=== PATIENT | male | born 1955 | race Hispanic/Latino ===

== ENCOUNTER 2018-10-13 09:59 | Emergency (ER) | payer BC, MEDICAID, SELFPAY ==
[2018-10-13 10:25] LABS: BASOPHILS % (AUTO) 0.8 % (0.0-5.0); EOSINOPHILS % (AUTO) 18.3 % (0.0-8.0); HEMATOCRIT 26.9 % (42-54); LYMPHOCYTES % (AUTO) 12.7 % (21.0-51.0); MEAN CORPUSCULAR HEMOGLOBIN 32.4 pg (27.0-33.0); MEAN CORPUSCULAR HGB CONC 33.7 g/dL (32.0-36.0); MEAN CORPUSCULAR VOLUME 96.2 fL (79-99); MONOCYTES % (AUTO) 9.1 % (3.0-13.0); NEUTROPHILS % (AUTO) 59.1 % (40.0-77.0); PLATELET COUNT (AUTO) 249 K/uL (130-400); RED CELL DISTRIBUTION WIDTH 14.1 % (11.0-15.5)
[2018-10-13 10:40] LABS: BILIRUBIN,TOTAL 0.3 mg/dL (0.2-1.0); CREATININE 5.9 mg/dL (0.5-1.5); POTASSIUM 5.5 mmol/L (3.5-5.1)
== END 2018-10-13 12:06 | disposition home or self-care (01) ==
LOC: EDH 09:59
DX: E87.5 Hyperkalemia (principal); I12.9 Hypertensive chronic kidney disease with stage 1 through stage 4 chronic kidney disease, or unspecified chronic kidney disease; N18.9 Chronic kidney disease, unspecified; E78.5 Hyperlipidemia, unspecified; K21.9 Gastro-esophageal reflux disease without esophagitis; Z85.01 Personal history of malignant neoplasm of esophagus; Z87.891 Personal history of nicotine dependence; Z79.899 Other long term (current) drug therapy
CPT/HCPCS: 36415; 80053; 84484; 85025; 93005

== ENCOUNTER 2018-10-29 01:42 | Emergency (ER) | payer MEDICAID | END 2018-10-29 03:16 | disposition home or self-care (01) | LOC: EDH 01:42 | DX: K59.00 Constipation, unspecified (principal); K21.9 Gastro-esophageal reflux disease without esophagitis; E78.5 Hyperlipidemia, unspecified; I10 Essential (primary) hypertension; Z85.01 Personal history of malignant neoplasm of esophagus | CPT/HCPCS: 99281 ==

== ENCOUNTER 2019-12-21 20:35 | Emergency (ER) | payer MEDICAID ==
[~2019-12-21 20:35] MED LIST: AMLO10TA7 PO; ATOR20TA PO; CARV6.2579 PO; CHOL100040 PO; FOLI1TAB85 PO; LORA1TAB3 PO; NITR0.4T SL; VIT59LIQ SL
[2019-12-21 21:51] LABS: BASOPHILS % (AUTO) 0.3 % (0.0-5.0); EOSINOPHILS % (AUTO) 6.6 % (0.0-8.0); HEMATOCRIT 34.1 % (42-54); LYMPHOCYTES % (AUTO) 6.1 % (21.0-51.0); MEAN CORPUSCULAR HEMOGLOBIN 32.5 pg (27.0-33.0); MEAN CORPUSCULAR HGB CONC 32.6 g/dL (32.0-36.0); MEAN CORPUSCULAR VOLUME 99.7 fL (79-99); MONOCYTES % (AUTO) 12.1 % (3.0-13.0); NEUTROPHILS % (AUTO) 74.7 % (40.0-77.0); PLATELET COUNT (AUTO) 221 K/uL (130-400); RED BLOOD CELL COUNT(AUTO) 3.42 MIL/uL (4.50-6.20); RED CELL DISTRIBUTION WIDTH 13.8 % (11.0-15.5); WHITE BLOOD COUNT (AUTO) 6.2 K/uL (4.8-10.8)
[2019-12-21] MEDS ORDERED: SODIUM CHLORIDE 0.9% 500ML 500 ML IV ONE (22:04)
[2019-12-21] MEDS ORDERED: ACETAMINOPHEN 325 MG TAB ONE (22:04)
[2019-12-21 22:06] LABS: CREATININE 6.1 mg/dL (0.5-1.5)
[2019-12-21 22:10] LABS: ALBUMIN 3.6 g/dL (3.5-5.0); BILIRUBIN,TOTAL 0.9 mg/dL (0.2-1.0); TOTAL PROTEIN, SERUM 8.6 g/dL (6.0-8.3)
[2019-12-21 22:20] LABS: APPEARANCE,URINE Clear (CLEAR); BILIRUBIN,URINE Negative (NEGATIVE); COLOR,URINE Yellow (YELLOW); GLUCOSE, URINE (UA) Negative (NEGATIVE); KETONES,URINE Trace mg/dL (NEGATIVE); LEUKOCYTE ESTERASE ,URINE Negative (NEGATIVE); NITRATE,URINE Negative (NEGATIVE); OCCULT BLOOD,URINE Negative (NEGATIVE); PH,URINE >=9.0 (5.0-8.0); PROTEIN,URINE 300 mg/dL (NEGATIVE)
[2019-12-21 22:27] LABS: RBC,URINE 0-1 /HPF (0-1)
[2019-12-21 22:28] LABS: BACTERIA,URINE Rare /HPF (None Seen); SQUAMOUS EPITHELIAL CELL,UR Rare /HPF (0-2); WBC,URINE 0-1 /HPF (0-1)
== END 2019-12-22 00:42 | disposition home or self-care (01) ==
LOC: EDH 20:35
DX: K52.9 Noninfective gastroenteritis and colitis, unspecified (principal); E86.0 Dehydration; K21.9 Gastro-esophageal reflux disease without esophagitis; I10 Essential (primary) hypertension; E78.5 Hyperlipidemia, unspecified; E87.5 Hyperkalemia
CPT/HCPCS: 36415; 71045; 80053; 81001; 83605; 83690; 84484; 85025; 87040 ×2; 93005; 96360; 99285; J7040

== ENCOUNTER 2020-05-28 21:59 | Inpatient (IN) | payer MEDICARE ==
[~2020-05-28] VITALS: Ht 167.6 cm; Wt 69.3 kg
[2020-05-28 22:38] LABS: APPEARANCE,URINE Clear (CLEAR); BILIRUBIN,URINE Negative (NEGATIVE); COLOR,URINE Yellow (YELLOW); GLUCOSE, URINE (UA) TRACE mg/dL (NEGATIVE); KETONES,URINE Negative (NEGATIVE); LEUKOCYTE ESTERASE ,URINE Negative (NEGATIVE); NITRATE,URINE Negative (NEGATIVE); OCCULT BLOOD,URINE Negative (NEGATIVE); PH,URINE 8.5 (5.0-8.0); PROTEIN,URINE 300 mg/dL (NEGATIVE); UROBILINOGEN,URINE 0.2 mg/dL (0.2-1.0)
[2020-05-28 22:51] LABS: BASOPHILS % (AUTO) 0.4 % (0.0-5.0); EOSINOPHILS % (AUTO) 4.2 % (0.0-8.0); HEMATOCRIT 31.8 % (42-54); LYMPHOCYTES % (AUTO) 6.7 % (21.0-51.0); MEAN CORPUSCULAR HEMOGLOBIN 32.6 pg (27.0-33.0); MEAN CORPUSCULAR HGB CONC 32.1 g/dL (32.0-36.0); MEAN CORPUSCULAR VOLUME 101.6 fL (79-99); NEUTROPHILS % (AUTO) 77.4 % (40.0-77.0); PLATELET COUNT (AUTO) 180 K/uL (130-400); RED BLOOD CELL COUNT(AUTO) 3.13 MIL/uL (4.50-6.20); RED CELL DISTRIBUTION WIDTH 14.2 % (11.0-15.5); WHITE BLOOD COUNT (AUTO) 7.2 K/uL (4.8-10.8)
[2020-05-28 23:02] LABS: INR 0.99 (0.85-1.15); PARTIAL THROMBOPLASTIN TIME 35.1 SEC (26.3-35.5); PROTHROMBIN TIME 10.7 SEC (9.6-11.6)
[2020-05-28 23:20] LABS: ALBUMIN 3.2 g/dL (3.5-5.0); BILIRUBIN,TOTAL 0.4 mg/dL (0.2-1.0); POTASSIUM 4.9 mmol/L (3.5-5.1); TOTAL PROTEIN, SERUM 7.5 g/dL (6.0-8.3)
[2020-05-28 23:22] LABS: CREATININE 11.5 mg/dL (0.5-1.5)
[2020-05-28 23:25] LABS: B-TYPE NATRIURETIC PEPTIDE 1490 pg/mL (0-100)
[2020-05-28] MEDS ORDERED: DILTIAZEM HCL 125 MG/25 ML VIAL IV ONE (23:25)
[2020-05-28] MEDS ORDERED: SODIUM CHLORIDE 0.9% 100 ML IV ONE (23:29)
[2020-05-28] MEDS ORDERED: FENTANYL CITRATE PF 50 MCG/1 ML 2ML VIAL ONE (23:53)
[2020-05-29] MEDS ORDERED: NITROGLYCERIN 0.4 MG SL TAB SL PRN (02:45)
[2020-05-29] MEDS ORDERED: LIDOCAINE HCL 2% VISCOUS 30 ML, MAG HYDROX/AL HYDROX/SIMETH 30 ML, BELLADONNA-PHENOBARB... PO PRN ×3 (02:45)
[2020-05-29] MEDS ORDERED: MAG HYDROX/AL HYDROX/SIMETH ES 30 ML SUSP UDCUP PO PRN (02:45)
[2020-05-29] MEDS ORDERED: DiphenhydrAMINE HCL 50 MG/ML VIAL IV PRN (02:45)
[2020-05-29] MEDS ORDERED: ACETAMINOPHEN 325 MG TAB PO PRN (02:45)
[2020-05-29] MEDS ORDERED: ONDANSETRON HCL 4 MG/2 ML VIAL IV PRN (02:45)
[2020-05-29] MEDS ORDERED: LACTULOSE 20 GM/30 ML UDCUP PO PRN (02:45)
[2020-05-29] MEDS ORDERED: MAG HYDROX/AL HYDROX/SIMETH 30 ML, LIDOCAINE HCL 2% VISCOUS 30 ML, DIPHENHYDRAMINE HCL ... PO PRN ×3 (02:45)
[2020-05-29] MEDS ORDERED: DIPHENHYDRAMINE HCL 25 MG CAPSULE PO PRN (02:45)
[2020-05-29] MEDS ORDERED: DILTIAZEM HCL 5 MG/ML 5 ML VIAL IVP PRN (04:15)
[2020-05-29] MEDS ORDERED: DILTIAZEM HCL 125 MG/25 ML 125 MG in SODIUM CHLORIDE 0.9% 100 ML IV PRN (04:15)
[2020-05-29] MEDS: GUAIFENESIN-DM 200/20 MG 10 ML PO PRN ×2 (06:17→20:36)
[2020-05-29] MEDS: ACETAMINOPHEN 325 MG TAB PO PRN ×2 (06:18→20:37)
[2020-05-29 08:00] VITALS: BP 182/80
[2020-05-29] MEDS: FAMOTIDINE/PF 20 MG/2 ML VIAL IV SCH ×2 (08:19→20:36)
[2020-05-29] MEDS: VITAMIN B COMPLEX 1 CAPSULE PO SCH (08:19)
[2020-05-29] MEDS: FOLIC ACID/VITAMIN B COMP W-C 1 CAP TAB PO SCH (08:19)
[2020-05-29 08:57] LABS: BASOPHILS % (AUTO) 0.3 % (0.0-5.0); EOSINOPHILS % (AUTO) 0.3 % (0.0-8.0); LYMPHOCYTES % (AUTO) 6.5 % (21.0-51.0); MEAN CORPUSCULAR HEMOGLOBIN 32.9 pg (27.0-33.0); MEAN CORPUSCULAR HGB CONC 32.6 g/dL (32.0-36.0); MEAN CORPUSCULAR VOLUME 100.9 fL (79-99); MONOCYTES % (AUTO) 12.1 % (3.0-13.0); NEUTROPHILS % (AUTO) 80.4 % (40.0-77.0); PLATELET COUNT (AUTO) 191 K/uL (130-400); RED BLOOD CELL COUNT(AUTO) 3.37 MIL/uL (4.50-6.20); RED CELL DISTRIBUTION WIDTH 14.2 % (11.0-15.5); WHITE BLOOD COUNT (AUTO) 7.7 K/uL (4.8-10.8)
[2020-05-29 09:12] LABS: BILIRUBIN,TOTAL 0.4 mg/dL (0.2-1.0); MAGNESIUM 2.2 mg/dL (1.80-2.40); PHOSPHORUS 4.5 mg/dL (2.5-4.9); POTASSIUM 5.2 mmol/L (3.5-5.1); TOTAL PROTEIN, SERUM 7.5 g/dL (6.0-8.3)
[2020-05-29] MEDS: **HM** VIT D3 1000 UNITS PO SCH (09:20)
[2020-05-29] MEDS: HEPARIN SODIUM 5000UNIT/ML 1ML VIAL SQ SCH ×3 (09:23→20:36)
[2020-05-29 09:24] LABS: CREATININE 11.8 mg/dL (0.5-1.5)
[2020-05-29 09:54] LABS: TROPONIN I 0.1 ng/mL (0.00-0.06)
--- NOTE | 2020-05-29 11:31 | NUR ---
DCP CM unable to meet with pt. Spoke to pt's son Juan San III on facesheet, discussed dc plans. Per son pt is independent prior to admission, lives at home w/spouse and son at home. Goes to [facility] T[facility] 4th shift. [facility]. Denies any other equipments/services. Feels safe to go back home, still drives, son able to assist with transportation and needs as necessary. DC plan to home once stable. CM to continue to follow up. Addendum: 05/29/20 at 1134 by DRU COHEN LVN CM Amended: Links added.
[2020-05-29 12:00] VITALS: BP 158/82
[2020-05-29 16:00] VITALS: BP 161/87
[2020-05-29 16:28] LABS: TROPONIN I 0.08 ng/mL (0.00-0.06)
[2020-05-29] MEDS ORDERED: SODIUM CHLORIDE 0.9% 1000ML 1,000 ML IV PRN (17:00)
[2020-05-29 19:30] VITALS: BP 164/75
[2020-05-29] MEDS: ZOLPIDEM TARTRATE 5 MG TAB PO PRN (20:37)
[2020-05-29 22:00] LABS: CREATINE KINASE, TOTAL 114 U/L (21-232); MYOGLOBIN 214 ng/mL (10-92); TROPONIN I < 0.04 ng/mL (0.00-0.06)
[2020-05-30 00:18] VITALS: BP 155/87
--- NOTE | 2020-05-30 02:59 | NUR ---
received report from xochitl leon nurse, assumed care, head to toe assessment done, 24 cc done, pt negative pcr of covid informed shira charged nurse, will pass to day team, safety maintained.
[2020-05-30 04:00] VITALS: BP 146/62
[2020-05-30] MEDS: GUAIFENESIN-DM 200/20 MG 10 ML PO PRN ×2 (05:11→20:28)
[2020-05-30] MEDS: ACETAMINOPHEN 325 MG TAB PO PRN ×2 (05:11→20:28)
[2020-05-30 05:28] LABS: BASOPHILS % (AUTO) 0.4 % (0.0-5.0); EOSINOPHILS % (AUTO) 2.4 % (0.0-8.0); HEMATOCRIT 31.5 % (42-54); LYMPHOCYTES % (AUTO) 6.7 % (21.0-51.0); MEAN CORPUSCULAR HGB CONC 33.3 g/dL (32.0-36.0); MEAN CORPUSCULAR VOLUME 99.1 fL (79-99); MONOCYTES % (AUTO) 9.9 % (3.0-13.0); NEUTROPHILS % (AUTO) 80.5 % (40.0-77.0); PLATELET COUNT (AUTO) 216 K/uL (130-400); RED BLOOD CELL COUNT(AUTO) 3.18 MIL/uL (4.50-6.20); RED CELL DISTRIBUTION WIDTH 14.2 % (11.0-15.5); WHITE BLOOD COUNT (AUTO) 7.1 K/uL (4.8-10.8)
[2020-05-30 06:01] LABS: ALBUMIN 2.9 g/dL (3.5-5.0); BILIRUBIN,TOTAL 0.5 mg/dL (0.2-1.0); MAGNESIUM 2.1 mg/dL (1.80-2.40); PHOSPHORUS 6.3 mg/dL (2.5-4.9); POTASSIUM 4.4 mmol/L (3.5-5.1); TOTAL PROTEIN, SERUM 7.5 g/dL (6.0-8.3)
[2020-05-30 06:17] LABS: CREATININE 9.8 mg/dL (0.5-1.5)
[2020-05-30] MEDS ORDERED: CEFTRIAXONE SODIUM 1 GM IVP SCH (07:45)
[2020-05-30 08:30] VITALS: BP 155/82
[2020-05-30] MEDS: FAMOTIDINE/PF 20 MG/2 ML VIAL IV SCH ×2 (08:35→20:25)
[2020-05-30] MEDS: VITAMIN B COMPLEX 1 CAPSULE PO SCH (08:35)
[2020-05-30] MEDS: FOLIC ACID/VITAMIN B COMP W-C 1 CAP TAB PO SCH (08:35)
[2020-05-30] MEDS: HEPARIN SODIUM 5000UNIT/ML 1ML VIAL SQ SCH ×3 (08:36→20:27)
[2020-05-30] MEDS: DOXYCYCLINE HYCLATE 100 MG TABLET PO SCH ×2 (08:49→20:29)
[2020-05-30] MEDS: **HM** VIT D3 1000 UNITS PO SCH (09:00)
[2020-05-30] MEDS ORDERED: VANCOMYCIN PROTOCOL PER PHARMACY IV SCH (10:15)
[2020-05-30] MEDS ORDERED: ASPI-1005 PO (10:51)
[2020-05-30] MEDS ORDERED: CALC667C10 PO (10:51)
[2020-05-30] MEDS ORDERED: TAMS-1 PO (10:52)
[2020-05-30] MEDS ORDERED: VANCOMYCIN 1GM+NS 250ML 250 ML IV SCH (11:00)
[2020-05-30] MEDS: CEFEPIME HCL 1 GM VIAL IVP SCH (11:30)
[2020-05-30 12:10] VITALS: BP 171/89
[2020-05-30] MEDS: LORAZEPAM 1 MG TABLET PO PRN (14:01)
[2020-05-30] MEDS ORDERED: AMIODARONE HCL 900 MG in DEXTROSE 5%-WATER 500 ML IV SCH (15:30)
[2020-05-30] MEDS ORDERED: AMIODARONE HCL 150 MG in DEXTROSE 5%-WATER 100 ML IV SCH (15:30)
[2020-05-30 16:30] VITALS: BP 158/72
[2020-05-30] MEDS: CARVEDILOL 6.25 MG TABLET PO SCH ×2 (16:58→20:29)
[2020-05-30 20:24] VITALS: BP 145/75
[2020-05-30] MEDS: ZOLPIDEM TARTRATE 5 MG TAB PO PRN (20:28)
[2020-05-31] VITALS (7 sets, daily range): BP systolic 128–169; BP diastolic 74–88
[2020-05-31] MEDS: ACETAMINOPHEN 325 MG TAB PO PRN (05:26)
[2020-05-31] MEDS: GUAIFENESIN-DM 200/20 MG 10 ML PO PRN (05:26)
--- NOTE | 2020-05-31 06:03 | NUR ---
received report from xochitl leon nurse, assumed care, dialysis, shift assessment done, 24 cc done, timed medication given see emar, given 2 covalescent plasma, pt tolerated well, no signs of distress noted, safety maintained.
[2020-05-31 06:43] LABS: BASOPHILS % (AUTO) 0.4 % (0.0-5.0); EOSINOPHILS % (AUTO) 1.8 % (0.0-8.0); HEMATOCRIT 29.6 % (42-54); LYMPHOCYTES % (AUTO) 7.1 % (21.0-51.0); MEAN CORPUSCULAR HGB CONC 33.4 g/dL (32.0-36.0); MEAN CORPUSCULAR VOLUME 98.7 fL (79-99); MONOCYTES % (AUTO) 7.9 % (3.0-13.0); NEUTROPHILS % (AUTO) 82.2 % (40.0-77.0); PLATELET COUNT (AUTO) 242 K/uL (130-400); RED CELL DISTRIBUTION WIDTH 14.4 % (11.0-15.5); WHITE BLOOD COUNT (AUTO) 6.8 K/uL (4.8-10.8)
[2020-05-31 07:04] LABS: ALBUMIN 2.6 g/dL (3.5-5.0); BILIRUBIN,TOTAL 0.5 mg/dL (0.2-1.0); CREATININE 7.4 mg/dL (0.5-1.5); PHOSPHORUS 4.5 mg/dL (2.5-4.9); POTASSIUM 3.6 mmol/L (3.5-5.1); TOTAL PROTEIN, SERUM 7.1 g/dL (6.0-8.3)
[2020-05-31] MEDS: DOXYCYCLINE HYCLATE 100 MG TABLET PO SCH ×2 (08:45→21:26)
[2020-05-31] MEDS: FOLIC ACID/VITAMIN B COMP W-C 1 CAP TAB PO SCH (08:45)
[2020-05-31] MEDS: CARVEDILOL 6.25 MG TABLET PO SCH ×2 (08:48→21:25)
[2020-05-31] MEDS: VITAMIN B COMPLEX 1 CAPSULE PO SCH (08:49)
[2020-05-31] MEDS: FAMOTIDINE/PF 20 MG/2 ML VIAL IV SCH ×2 (08:49→21:25)
[2020-05-31] MEDS ORDERED: VANCOMYCIN 1GM+NS 250ML 250 ML IV SCH (09:00)
[2020-05-31] MEDS: CEFEPIME HCL 1 GM VIAL IVP SCH (09:29)
[2020-05-31] MEDS: APIXABAN 2.5 MG TABLET PO SCH ×2 (09:31→21:27)
[2020-05-31] MEDS: AMIODARONE HCL 200 MG TABLET PO SCH (09:31)
[2020-05-31] MEDS: **HM** VIT D3 1000 UNITS PO SCH (09:32)
[2020-05-31] MEDS: HEPARIN SODIUM 5000UNIT/ML 1ML VIAL SQ SCH ×3 (10:00→21:28)
[2020-05-31 10:13] LABS: HEPATITIS A ANTIBODY IGM Negative (Negative); HEPATITIS B CORE IGM Negative (Negative); HEPATITIS Bs ANTIGEN SCREEN P Negative (Negative)
[2020-06-01 03:51] LABS: BASOPHILS % (AUTO) 0.3 % (0.0-5.0); EOSINOPHILS % (AUTO) 7.1 % (0.0-8.0); HEMATOCRIT 30.8 % (42-54); MEAN CORPUSCULAR HEMOGLOBIN 32.4 pg (27.0-33.0); MEAN CORPUSCULAR HGB CONC 32.8 g/dL (32.0-36.0); MEAN CORPUSCULAR VOLUME 98.7 fL (79-99); MONOCYTES % (AUTO) 8.5 % (3.0-13.0); NEUTROPHILS % (AUTO) 70.7 % (40.0-77.0); PLATELET COUNT (AUTO) 264 K/uL (130-400); RED BLOOD CELL COUNT(AUTO) 3.12 MIL/uL (4.50-6.20); RED CELL DISTRIBUTION WIDTH 14.6 % (11.0-15.5); WHITE BLOOD COUNT (AUTO) 7.1 K/uL (4.8-10.8)
[2020-06-01 04:10] LABS: POTASSIUM 3.7 mmol/L (3.5-5.1)
[2020-06-01 04:25] LABS: CREATININE 9.3 mg/dL (0.5-1.5)
[2020-06-01 04:34] VITALS: BP 132/75
[2020-06-01 07:45] VITALS: BP 166/84
[2020-06-01] MEDS: **HM** VIT D3 1000 UNITS PO SCH (09:00)
[2020-06-01] MEDS: DOXYCYCLINE HYCLATE 100 MG TABLET PO SCH ×2 (10:05→22:13)
[2020-06-01] MEDS: APIXABAN 2.5 MG TABLET PO SCH ×2 (10:05→22:14)
[2020-06-01] MEDS: AMIODARONE HCL 200 MG TABLET PO SCH (10:06)
[2020-06-01] MEDS: CEFEPIME HCL 1 GM VIAL IVP SCH (10:06)
[2020-06-01] MEDS: VITAMIN B COMPLEX 1 CAPSULE PO SCH (10:06)
[2020-06-01] MEDS: FOLIC ACID/VITAMIN B COMP W-C 1 CAP TAB PO SCH (10:06)
[2020-06-01] MEDS: FAMOTIDINE/PF 20 MG/2 ML VIAL IV SCH ×2 (10:06→22:14)
[2020-06-01] MEDS: CARVEDILOL 6.25 MG TABLET PO SCH ×2 (10:06→22:13)
--- NOTE | 2020-06-01 10:30 | NUR ---
RECEIVED CALL FROM STARCHMAKER PATIENT HAD 6 BEATS OF VTACH LASTING APPROX [address]. SIMMONS MADE AWARE, NO NEW ORDERS
[2020-06-01 11:00] VITALS: BP 123/65
[2020-06-01 16:00] VITALS: BP 128/70
[2020-06-01 20:10] VITALS: BP 159/83
[2020-06-01] MEDS: LORAZEPAM 1 MG TABLET PO PRN (22:43)
[2020-06-01 23:30] VITALS: BP 145/63
[2020-06-02 04:00] VITALS: BP 160/73
[2020-06-02 06:19] LABS: BASOPHILS % (AUTO) 0.7 % (0.0-5.0); HEMATOCRIT 29.3 % (42-54); LYMPHOCYTES % (AUTO) 18.1 % (21.0-51.0); MEAN CORPUSCULAR HEMOGLOBIN 32.5 pg (27.0-33.0); MEAN CORPUSCULAR HGB CONC 32.4 g/dL (32.0-36.0); MEAN CORPUSCULAR VOLUME 100.3 fL (79-99); MONOCYTES % (AUTO) 11.8 % (3.0-13.0); NEUTROPHILS % (AUTO) 58.8 % (40.0-77.0); PLATELET COUNT (AUTO) 284 K/uL (130-400); RED BLOOD CELL COUNT(AUTO) 2.92 MIL/uL (4.50-6.20); RED CELL DISTRIBUTION WIDTH 14.5 % (11.0-15.5); WHITE BLOOD COUNT (AUTO) 5.4 K/uL (4.8-10.8)
[2020-06-02 06:41] LABS: CREATININE 7.3 mg/dL (0.5-1.5); MAGNESIUM 2.1 mg/dL (1.80-2.40); POTASSIUM 3.8 mmol/L (3.5-5.1)
[2020-06-02 08:00] VITALS: BP 155/79
--- NOTE | 2020-06-02 08:42 | NUR ---
PATIENT REFUSES TO HAVE DR HOFFMAN HIS DOCTOR, IS REQUESTING A DIFFERENT DOCTOR.
[2020-06-02] MEDS: FOLIC ACID/VITAMIN B COMP W-C 1 CAP TAB PO SCH (09:00)
[2020-06-02] MEDS: VITAMIN B COMPLEX 1 CAPSULE PO SCH (09:00)
[2020-06-02] MEDS: **HM** VIT D3 1000 UNITS PO SCH (09:00)
[2020-06-02 11:00] VITALS: BP 152/80
[2020-06-02] MEDS: CEFEPIME HCL 1 GM VIAL IVP SCH (11:09)
[2020-06-02] MEDS: CARVEDILOL 6.25 MG TABLET PO SCH (11:12)
[2020-06-02] MEDS: DOXYCYCLINE HYCLATE 100 MG TABLET PO SCH (11:13)
[2020-06-02] MEDS: AMIODARONE HCL 200 MG TABLET PO SCH (11:13)
[2020-06-02] MEDS: FAMOTIDINE/PF 20 MG/2 ML VIAL IV SCH (11:13)
[2020-06-02] MEDS: APIXABAN 2.5 MG TABLET PO SCH (11:13)
--- NOTE | 2020-06-02 15:40 | NUR ---
#22 rh iv removed upon discharge. Catheter intact. Covered with gauze, bandage. Addendum: 06/02/20 at 1542 by HERBIE INGRAM RN RN Amended: Links added.
[2020-06-02 16:08] VITALS: BP 164/79
== END 2020-06-02 16:16 | disposition home or self-care (01) | DRG 193 ==
LOC: EDH 21:59 → EDHIP 05-29 02:37 → 4AH 05-29 04:04 → 4DH 05-31 14:49
PROVIDERS: ADMIT Internal Medicine; ATTEND Internal Medicine
PROC: 5A1D70Z Performance of Urinary Filtration, Intermittent, Less than 6 Hours Per Day (ICD-10-PCS; principal; 2020-05-29)
PROC: 5A1D70Z Performance of Urinary Filtration, Intermittent, Less than 6 Hours Per Day (ICD-10-PCS; 2020-05-30)
PROC: 5A1D70Z Performance of Urinary Filtration, Intermittent, Less than 6 Hours Per Day (ICD-10-PCS; 2020-06-01)
DX: J18.1 Lobar pneumonia, unspecified organism (principal); N18.6 End stage renal disease; J96.01 Acute respiratory failure with hypoxia; D61.818 Other pancytopenia; I13.2 Hypertensive heart and chronic kidney disease with heart failure and with stage 5 chronic kidney disease, or end stage renal disease; I47.1 Supraventricular tachycardia; E87.1 Hypo-osmolality and hyponatremia; E87.5 Hyperkalemia; I50.9 Heart failure, unspecified; I48.0 Paroxysmal atrial fibrillation; F41.9 Anxiety disorder, unspecified; Z20.828 Contact with and (suspected) exposure to other viral communicable diseases; E78.5 Hyperlipidemia, unspecified; E87.70 Fluid overload, unspecified; E11.22 Type 2 diabetes mellitus with diabetic chronic kidney disease; N40.0 Benign prostatic hyperplasia without lower urinary tract symptoms; Y95 Nosocomial condition; N26.1 Atrophy of kidney (terminal); K74.60 Unspecified cirrhosis of liver; R53.81 Other malaise; D64.9 Anemia, unspecified; I25.10 Atherosclerotic heart disease of native coronary artery without angina pectoris; Z96.643 Presence of artificial hip joint, bilateral; Z99.2 Dependence on renal dialysis; Z79.82 Long term (current) use of aspirin; Z79.01 Long term (current) use of anticoagulants; Z79.899 Other long term (current) drug therapy; Z85.01 Personal history of malignant neoplasm of esophagus; Z91.15 Patient's noncompliance with renal dialysis; Z90.49 Acquired absence of other specified parts of digestive tract
CPT/HCPCS: 36415; 71045; 71250; 74176; 80048; 80053; 80074; 81003; 82550; 82728; 83605; 83615; 83690; 83735; 83874; 83880; 84100; 84145; 84484; 85025; 85378; 85610; 85730; 86140; 87426; 90935; 93005; 93306; 93356; 99291; G0378; J0282; J0692; J0696; J1644; J3010; J3370; J3490; J7060; U0003

== ENCOUNTER → 2020-07-19 | Outpatient (CLI) | payer MEDICARE ==
[~2020-07-19] MED LIST changes: +AMLO-258 PO; -AMLO10TA7 PO; +ASPI-1005 PO; +CALC667C10 PO; +TAMS-1 PO
== END | disposition home or self-care (01) ==
LOC: SHCH 15:30
PROVIDERS: ATTEND Internal Medicine Cardiovascular Disease
DX: I65.23 Occlusion and stenosis of bilateral carotid arteries (principal); I25.10 Atherosclerotic heart disease of native coronary artery without angina pectoris
CPT/HCPCS: 93880

== ENCOUNTER → 2020-07-21 | Outpatient (CLI) | payer MEDICARE ==
[2020-07-21] MEDS: REGADENOSON 0.4 MG/5 ML PF SYG IVP SCH (11:33)
== END | disposition home or self-care (01) ==
LOC: SHCH 07:55
PROVIDERS: ATTEND Internal Medicine Cardiovascular Disease
DX: I25.10 Atherosclerotic heart disease of native coronary artery without angina pectoris (principal)
CPT/HCPCS: 78452; 93017; 96374; A9500 ×2; J2785

== ENCOUNTER → 2021-07-27 | Outpatient (CLI) | payer OTHER, MEDICARE | END | disposition home or self-care (01) | LOC: RAH 14:05 | PROVIDERS: ATTEND Thoracic Surgery (Cardiothoracic Vascular Surgery) | DX: J44.9 Chronic obstructive pulmonary disease, unspecified (principal); J98.11 Atelectasis; K80.20 Calculus of gallbladder without cholecystitis without obstruction; Z90.49 Acquired absence of other specified parts of digestive tract | CPT/HCPCS: 71250 ==

== ENCOUNTER → 2023-01-24 | Outpatient (CLI) | payer OTHER, MEDICARE | END | disposition home or self-care (01) | LOC: SHCH 09:31 | PROVIDERS: ATTEND Internal Medicine Cardiovascular Disease | DX: I08.0 Rheumatic disorders of both mitral and aortic valves (principal); I11.9 Hypertensive heart disease without heart failure; I65.23 Occlusion and stenosis of bilateral carotid arteries; E78.5 Hyperlipidemia, unspecified; Z95.1 Presence of aortocoronary bypass graft | CPT/HCPCS: 93306; 93880 ==

== ENCOUNTER → 2023-01-31 | Outpatient (CLI) | payer OTHER, MEDICARE ==
[~2023-01-31] MED LIST changes: +REGADENOSON 0.4 MG/5 ML PF SYG IVP ONE
== END | disposition home or self-care (01) ==
LOC: CANPRECLI → SHCH 07:43
PROVIDERS: ATTEND Internal Medicine Cardiovascular Disease
DX: R06.09 Other forms of dyspnea (principal); I25.10 Atherosclerotic heart disease of native coronary artery without angina pectoris; R06.02 Shortness of breath; I13.11 Hypertensive heart and chronic kidney disease without heart failure, with stage 5 chronic kidney disease, or end stage renal disease; N18.6 End stage renal disease; Z99.2 Dependence on renal dialysis; Z95.1 Presence of aortocoronary bypass graft; Z79.899 Other long term (current) drug therapy; Z79.01 Long term (current) use of anticoagulants
CPT/HCPCS: 78452; 96374; 93017; J2785; A9500 ×2

== ENCOUNTER 2024-02-09 06:18 | Day surgery (SDC) | payer OTHER, MEDICARE ==
[2024-02-06 10:19] VITALS: BP 152/72; PULSE 53; RESP 18
[2024-02-06 10:25] LABS: BASOPHILS # (AUTO) 0.05 K/uL (0.00-0.20); BASOPHILS % (AUTO) 0.8 % (0.0-5.0); EOSINOPHILS # (AUTO) 0.65 K/uL (0.00-0.70); EOSINOPHILS % (AUTO) 10.2 % (0.0-8.0); HEMATOCRIT 32.9 % (42-54); IMMATURE GRANULOCYTE ABSOLUTE 0.01 K/uL (0-1); LYMPHOCYTES # (AUTO) 0.6 K/uL (1.0-4.8); LYMPHOCYTES % (AUTO) 9.9 % (21.0-51.0); MEAN CORPUSCULAR HEMOGLOBIN 33.4 pg (27.0-33.0); MEAN CORPUSCULAR HGB CONC 32.8 g/dL (32.0-36.0); MEAN CORPUSCULAR VOLUME 101.9 fL (79-99); MONOCYTES # (AUTO) 0.7 K/uL (0.1-1.0); NEUTROPHILS # (AUTO) 4.3 K/uL (1.8-7.7); NEUTROPHILS % (AUTO) 67.9 % (40.0-77.0); PLATELET COUNT (AUTO) 165 K/uL (130-400); RED BLOOD CELL COUNT(AUTO) 3.23 MIL/uL (4.50-6.20); RED CELL DISTRIBUTION WIDTH 15.1 % (11.0-15.5); WHITE BLOOD COUNT (AUTO) 6.4 K/uL (4.8-10.8)
[2024-02-06 10:26] LABS: APPEARANCE,URINE CLEAR (CLEAR); BILIRUBIN,URINE NEGATIVE (NEGATIVE); COLOR,URINE LIGHT-YELLOW (YELLOW); GLUCOSE, URINE (UA) 50 mg/dL (NEGATIVE); KETONES,URINE NEGATIVE (NEGATIVE); LEUKOCYTE ESTERASE ,URINE NEGATIVE Leu/uL (NEGATIVE); NITRATE,URINE NEGATIVE (NEGATIVE); OCCULT BLOOD,URINE NEGATIVE (NEGATIVE); PH,URINE 8.5 (5.0-8.0); PROTEIN,URINE 300 mg/dL (NEGATIVE); UROBILINOGEN,URINE 0.2 mg/dL (0.2-1.0)
[2024-02-06 10:29] LABS: ADD UA MICROSCOPIC YES
[2024-02-06 10:36] LABS: INR 1.06 (0.85-1.15); PROTHROMBIN TIME 12.4 SEC (9.6-11.6)
[2024-02-06 10:37] LABS: PARTIAL THROMBOPLASTIN TIME 33.2 SEC (26.3-35.5)
[2024-02-06 10:40] LABS: POTASSIUM 4.2 mmol/L (3.5-5.1)
[2024-02-06 10:57] LABS: B-TYPE NATRIURETIC PEPTIDE > 5000 pg/mL (0-100)
[2024-02-06 11:35] LABS: RBC,URINE 0-1 /HPF (0-1); SQUAMOUS EPITHELIAL CELL,UR RARE /HPF (0-2)
[~2024-02-09] VITALS: Ht 167.6 cm; Wt 63.9 kg
[2024-02-09] VITALS (10 sets, daily range): BP systolic 145–163; BP diastolic 72–81; PULSE 59–69; RESP 14–17
[~2024-02-09 06:18] MED LIST changes: -AMLO-258 PO; +APIX2.5T PO; -CALC667C10 PO; +CARV12.511 PO; -CARV6.2579 PO; +LEVO100T4 PO; -NITR0.4T SL; +OMEP40CA21 PO; -REGADENOSON 0.4 MG/5 ML PF SYG IVP ONE; -TAMS-1 PO; -VIT59LIQ SL
[2024-02-09] MEDS: 0.9%NACL 1000ML 1,000 ML IV ONE (07:35)
[2024-02-09] MEDS ORDERED: LIDOCAINE HCL 400MG/20ML VIAL ONE (09:26)
[2024-02-09] MEDS ORDERED: SODIUM BICARB 50MEQ 50ML VIAL 50 ML ONE (09:26)
[2024-02-09] MEDS ORDERED: IOHEXOL 350 MG/ML 100ML INFUS..BTL IV ONE (09:26)
[2024-02-09] MEDS ORDERED: HEPARIN 10,000 UNIT/10ML (1,000 UNIT/ML) VIAL ONE (09:27)
[2024-02-09] MEDS ORDERED: IOHEXOL-350 50ML VIAL IV ONE (09:27)
[2024-02-09] MEDS ORDERED: MIDAZOLAM HCL 1 MG/ML 2ML VIAL ONE (09:43)
[2024-02-09] MEDS ORDERED: MEPERIDINE-PF 25 MG/ML SYG ONE (09:43)
[2024-02-09] MEDS ORDERED: NITROGLYCERIN 50MG/D5W 250ML 1 BOT ONE (10:08)
[2024-02-09] MEDS ORDERED: CLOPIDOGREL 300MG TAB ONE (10:58)
[2024-02-09] MEDS ORDERED: 0.9%NACL 10ML VIAL IV SCH (11:30)
== END 2024-02-09 16:00 | disposition home or self-care (01) ==
LOC: DAH 06:18
PROVIDERS: ATTEND Internal Medicine Cardiovascular Disease
DX: R94.39 Abnormal result of other cardiovascular function study (principal); I25.119 Atherosclerotic heart disease of native coronary artery with unspecified angina pectoris; I65.29 Occlusion and stenosis of unspecified carotid artery; I48.0 Paroxysmal atrial fibrillation; I13.2 Hypertensive heart and chronic kidney disease with heart failure and with stage 5 chronic kidney disease, or end stage renal disease; N18.6 End stage renal disease; I50.32 Chronic diastolic (congestive) heart failure; E78.5 Hyperlipidemia, unspecified; Z82.49 Family history of ischemic heart disease and other diseases of the circulatory system; Z98.42 Cataract extraction status, left eye; Z79.82 Long term (current) use of aspirin; Z79.899 Other long term (current) drug therapy; Z98.890 Other specified postprocedural states
CPT/HCPCS: 80048; 83880; 85025; 85610; 85730; 87077; 87088; 87186; 81001; 36415; 71045; 93005; 93459; 85347; C9600; C1769; C1894; C1874; C1760; C1887; Q9965 ×2; C1725 ×2; J3490 ×3; J7030; J1644 ×2; J2250; J2175; Q9967; A4215; A4222; A4221; A4663; A4216; A4606; A4223 ×3; 92920; 99156; 99157

== ENCOUNTER → 2024-11-19 | Outpatient (CLI) | payer OTHER, MEDICARE ==
--- NOTE | 2024-11-23 07:50 | HMCSR ---
APPROVED REPORT EXAM: Two-dimensional and M-mode echocardiogram with Doppler and color Doppler. INDICATION ICD: R06.00 Dyspnea 2D Dimensions RVDd5.2 cmLVEF(%)20.0 (>50%)LVED Vol(simp.)168.0 mL IVSd1.1 (0.7-1.1cm)FS(%)5 %LVES Vol(simp.)128.0 mL LVDd4.4 (3.8-5.6cm)Ao Root(2D)3.1 (2.0-3.7cm)LVEF(%, simp.)24 % PWd1.2 (0.7-1.1cm)LVOT diam2.2 (1.8-2.4cm)LA ESV INDEX (BP)38.53 mL/m2 LVDs4.1 (2.5-4.0cm)IVC diam2.3 cm Aortic Valve AoV Vmax1.1 m/Srinath Peak GR5.0 mmHgLVOT Vmax0.8 m/s AoV VTI0.3 mAo Mean GR2.9 mmHgLVOT VTI0.16 m ANOOP (VMAX)2.4 cm2Al P1/2T514 msAVA (VTI) 2.4 cm2 Mitral Valve MV E Nwii148.9 cm/sDECEL Btpe532 msMV Peak GR12 mmHg MV A Vmax49.7 cm/sP 1/2 T55 msMV Mean GR4 mmHg E/A ratio3.2MVA (PHT)4.0 cm2 MR Max PG79 mmHg TDI E/E' Kzltaj32.9E/E' Qzwektm08.2 Pulmonary Valve PV Vmax1.0 m/sPV VTI0.23 mPV Mean GR2 mmHg PV Peak GR4.1 mmHgPI End Isis. Jose Armando 1.7 cm/s Tricuspid Valve TR Vmax3.5 m/sRAP (EST) 15 iiZkEETA04.2 mmHg TR Peak GR50.2 mmHg Left Ventricle Left ventricular cavity size is normal. Severe global ypokinesis. There is mild concentric left ventr icular hypertrophy. LVEF is 20-25%. No left ventricle thrombus noted on this study. Grade 3 diastolic dysfunction. Right Ventricle The right ventricle is severely dilated. Right ventricular systolic function is moderately reduced. Atria The left atrium is mildly dilated. The right atrium is mildly dilated. Aortic Valve Aortic valve is trileaflet. Aortic valve is mildly calcified. Trace to mild aortic regurgitation. The re is no aortic valvular stenosis. Mitral Valve Mitral valve leaflets are mildly calcified. Mitral annular calcification is mild. Mitral regurgitatio n is trace to mild. Calculated mitral valve area is 1.5 cm2 with maximum pressure gradient of 12 mmHg and mean pressure gradient of 4.2 mmHg. Tricuspid Valve The tricuspid valve leaflets appear normal. There is moderate to severe tricuspid regurgitation. Righ t ventricular systolic pressure is estimated at greater than 60 mmHg. Pulmonic Valve The pulmonic valve leaflets are thin and pliable; valve motion is normal. There is mild valvular regu rgitation. Great Vessels The aortic root is normal in size. IVC is dilated and collapses >50% with inspiration. Pericardium No pericardial effusion. Conclusion Left ventricular cavity size is normal. There is mild concentric left ventricular hypertrophy. LVEF is 20-25%. Grade 3 diastolic dysfunction. Severe global ypokinesis. The right ventricle is severely dilated. Right ventricular systolic function is moderately reduced. The left atrium is mildly dilated. The right atrium is mildly dilated. Aortic valve is trileaflet. Aortic valve is mildly calcified. Trace to mild aortic regurgitation. There is no aortic valvular stenosis. Mitral valve leaflets are mildly calcified. Mitral annular calcification is mild. Mitral regurgitation is trace to mild. Calculated mitral valve area is 1.5 cm2 with maximum pressure gradient of 12 mmHg and mean pressure g radient of 4.2 mmHg. There is moderate to severe tricuspid regurgitation. Right ventricular systolic pressure is estimated at greater than 60 mmHg. There is mild valvular regurgitation. The aortic root is normal in size. IVC is dilated and collapses >50% with inspiration. No pericardial effusion.
== END | disposition home or self-care (01) ==
LOC: SHCH 10:30
PROVIDERS: ATTEND Internal Medicine Cardiovascular Disease
DX: I08.8 Other rheumatic multiple valve diseases (principal); R06.00 Dyspnea, unspecified
CPT/HCPCS: 93306

== ENCOUNTER → 2024-12-27 | Outpatient (CLI) | payer OTHER, MEDICARE ==
[2024-12-27 12:05] LABS: BASOPHILS # (AUTO) 0.06 K/uL (0.00-0.20); BASOPHILS % (AUTO) 1.2 % (0.0-5.0); EOSINOPHILS # (AUTO) 0.56 K/uL (0.00-0.70); EOSINOPHILS % (AUTO) 10.9 % (0.0-8.0); HEMATOCRIT 31.2 % (42-54); IMMATURE GRANULOCYTE ABSOLUTE 0.01 K/uL (0-1); LYMPHOCYTES # (AUTO) 0.7 K/uL (1.0-4.8); LYMPHOCYTES % (AUTO) 13.5 % (21.0-51.0); MEAN CORPUSCULAR HEMOGLOBIN 35.4 pg (27.0-33.0); MEAN CORPUSCULAR HGB CONC 32.7 g/dL (32.0-36.0); MEAN CORPUSCULAR VOLUME 108.3 fL (79-99); MONOCYTES # (AUTO) 0.5 K/uL (0.1-1.0); MONOCYTES % (AUTO) 10.2 % (3.0-13.0); NEUTROPHILS # (AUTO) 3.3 K/uL (1.8-7.7); PLATELET COUNT (AUTO) 185 K/uL (130-400); RED BLOOD CELL COUNT(AUTO) 2.88 MIL/uL (4.50-6.20); RED CELL DISTRIBUTION WIDTH 14.1 % (11.0-15.5); WHITE BLOOD COUNT (AUTO) 5.1 K/uL (4.8-10.8)
[2024-12-27 12:32] LABS: ALANINE AMINOTRANSFERASE 17 U/L (12-78); ALBUMIN 3.2 g/dL (3.5-5.0); ASPARTATE AMINOTRANSFERASE 20 U/L (10-37); BILIRUBIN,TOTAL 0.8 mg/dL (0.2-1.0); CARBON DIOXIDE 27 mmol/L (21-32); CHLORIDE 98 mmol/L (101-111); CHOLESTEROL 136 mg/dL (<200); CREATININE 5.5 mg/dL (0.5-1.3); GLOMERULAR FILTR. RATE CALC 11 mL/min (>90); GLUCOSE,RANDOM 88 mg/dL (70-105); HDL CHOLESTEROL 76 mg/dL (29-71); LDL DIRECT 59 mg/dL (0-99); POTASSIUM 4.5 mmol/L (3.5-5.1); SODIUM SERUM 136 mmol/L (136-145); TOTAL PROTEIN, SERUM 6.9 g/dL (6.0-8.3); TRIGLYCERIDES 48 mg/dL (30-200); UREA NITROGEN, BLOOD 48 mg/dL (7-18)
== END | disposition home or self-care (01) ==
LOC: LAB 08:36
PROVIDERS: ATTEND Nurse Practitioner Acute Care
DX: I10 Essential (primary) hypertension (principal); E78.5 Hyperlipidemia, unspecified
CPT/HCPCS: 36415; 80053; 80061; 83880; 85025